=== PATIENT | male | born 1985 | race Caucasian/White ===

== ENCOUNTER 2022-10-27 08:47 | Outpatient (AMB) | payer OTHER, SELFPAY ==
[2022-10-27 08:49] VITALS: BP 116/76; PULSE 78; O2SAT 98; BMI 41.5
--- NOTE | 2022-10-27 08:49 | A.OFFPC_ITS ---
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: No Accompanied by: Self / Same As Patient Allergies No Known Allergies Allergy (Verified 10/27/22 09:14) Medication List - Last Reconciled 10/27/22 by Jesse Manzano MD No Known Home Meds Tobacco use date assessed: 10/27/22 Dental Screening Dental Screen Date: 10/27/22 Did you have a dental visit in the last 12 months?: No Did you have a dental problem in the last 6 months where you did not have access to dental care?: No Was dental information given to patient?: No 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 Details Patient comes in today for his annual physical examination and to establish care - is a new patient to the practice He was actually seen once her back in 2019 by Anselmo Swanson but he did not follow up since as he reportedly lost his health insurance coverage afterwards States that he's had BRI for years and was using a CPAP device regularly until his device broke down a few weeks ago and he will need to get a replacement device ELENA Recalls that his sleep study was done in [place] several years ago and that he tried to get a copy of his results sent over when he was first seen here a few years ago but we have not received any copy of this so far Also recalls that his previous PCP in [place] has cautioned him in the past that his blood pressure and cholesterol levels were a little higher than normal but he's never had to take any Rx for BP or cholesterol previously States that he feels okay overall and currently has no acute issues other than needing a new CPAP device He denies any headaches or dizziness Denies any chest pains, no SOB No nausea/vomiting, no abdominal pain but relates (+) on and off heartburns lately - states that these are promptly relieved with OTC Tums that he takes PRN No change in bowel habits noted Denies any acute urinary symptoms PFSH Medical History (Updated 10/27/22 @ 09:43 by Jesse Manzano MD) Morbid obesity with BMI of 40.0-44.9, adult Obstructive sleep apnea Surgical History (Updated 10/27/22 @ 09:18 by Jesse Manzano MD) History of tonsillectomy and adenoidectomy Family History Other Heart problem Social History Housing: Apartment Patient Tobacco Use Status: Former Tobacco user e-Cigarette/Vaping Use: Never Used service: No Current occupational status: employed Cognitive needs: No Hearing needs: No Vision needs: No Questionnaire PHQ-9 Over the last 2 weeks, how often have you been bothered by any of the following problems? 1. Little interest or pleasure in doing things: not at all 2. Feeling down, depressed, or hopeless: not at all 3. Trouble falling or staying asleep, or sleeping too much: not at all 4. Feeling tired or having little energy: not at all 5. Poor appetite or overeating: not at all 6. Feeling bad about yourself - or that you are a failure or have let yourself or your family down: not at all 7. Trouble concentrating on things, such as reading the newspaper or watching television: not at all 8. Moving or speaking so slowly that other people could have noticed. Or the opposite - being so fidgety or restless that you have been moving around a lot more than usual: not at all 9. Thoughts that you would be better off or of hurting yourself in some way: not at all Total score: 0 Depression Screening Interpretation: Negative [id number] - PHQ-9 Billing: Yes Source: Developed by Drs. Shimon Cary, Yanelis Olivera, Abdias Loaiza and colleagues, with an educational shar from [employer] Thrive Questionnaire Date Thrive assessed: 10/27/22 I am a: Patient What is your living situation today?: I have a steady place to live Within the past 12 months, did the food you bought not last and you didn't have the money to get more?: Never true Within the past 12 months, did you worry whether your food would run out before you got money to buy more?: Never true Do you have trouble paying for medicines?: No Do you have trouble getting transportation to medical appointments?: No Do you have trouble paying your heating and electricity bill?: No Do you have trouble taking care of your child, family member or friend?: No Do you have trouble with day-to-day activities such as bathing, preparing meals, shopping, managing finances, etc.?: No Are you currently unemployed and looking for a job?: No Are you interested in more education?: No Please select the resources that you would like help with: None Currently or been in a relationship where the following occur: no concerns reported AUDIT C Alcohol Use Questionnaire (AUDIT-C) 1. How often do you have a drink containing alcohol?: Never 3. How often do you have six or more drinks on one occasion?: Never Total Score: 0 Score Reviewed/Action Taken: Yes DES-7 AMB Questionnaire DES-7 Date DES - 7 assessed: 10/27/22 Feeling nervous, anxious, or on edge: 0 = Not at all Not being able to stop or control worryin = Not at all Worrying too much about different things: 0 = Not at all Trouble relaxin = Not at all Being so restless that it is hard to sit still: 0 = Not at all Becoming easily annoyed or irritable: 0 = Not at all Source: Developed by Drs. Shimon Cary, Yanelis Olivera, Abdias Loaiza and colleagues, with an educational shar from [employer] Review of Systems Const Denies chills, Denies fatigue, Denies fever(s), Denies headache(s), Denies malaise and Denies weakness Eyes Denies blurry vision, Denies change in vision, Denies irritation and Denies itchy eyes ENT Denies dysphagia, Denies dizziness, Denies otalgia, Denies headache(s), Denies nasal congestion, Denies neck pain, Denies odynophagia and Denies sore throat Card Denies chest pain, Denies rapid heart rate, Denies irregular heart rhythm, Den ies palpitations and Denies dyspnea Resp Denies chest congestion, Denies cough, Denies dyspnea and Denies wheezing GI Denies abdominal pain, Denies bloating, Denies constipation, Denies dysphagia, Reports heartburn (on and off lately), Denies diarrhea, Denies nausea, Denies odynophagia and Denies vomiting Denies hematuria, Denies difficulty urinating, Denies dysuria, Denies urinary frequency and Denies urinary urgency Musc Denies back pain, Denies arthralgias, Denies joint swelling, Denies muscle weakness and Denies neck pain Skin/Breast Denies change in pigmentation, Denies lesions, Denies rash and Denies unusual bruising Neuro Denies dizziness, Denies headache(s), Denies paresthesias and Denies weakness Endo Denies fatigue and Denies palpitations Aller/Immun Denies itchy eyes and Denies wheezing Physical exam (Primary Care) Vital Signs: Last Vital Signs Pulse 78 10/27/22 08:49 BP 116/76 10/27/22 08:49 Pulse Ox 98 10/27/22 08:49 Oxygen Delivery Method Room Air 10/27/22 08:49 BMI result Body Mass Index 41.5 Tobacco/Smoking Status: Tobacco use Status Tobacco use date assessed 10/27/22 10/27/22 08:56 Patient Tobacco Use Status Former Tobacco user 10/27/22 08:56 e-Cigarette/Vaping Use Never Used 10/27/22 08:56 PHQ-9: PHQ-9 Score PHQ-9: Total score 0 10/27/22 08:56 Depression Screening Interpretation: Negative Thrive Assessment: Date of Thrive Assessment Date Thrive assessed 10/27/22 10/27/22 08:56 Currently or been in a relationship where the following occur: no concerns reported Const General: no acute distress, alert and awake Orientation/consciousness: patient oriented x3 HENMT Head: Yes normocephalic and Yes atraumatic Ears: external ears normal, TM's normal bilaterally and EAC's normal General nose exam: No nasal discharge present Face and sinus: Yes normal facial exam and Yes sinuses nontender Teeth and gingiva: dentition normal Throat: Yes posterior oropharynx normal and Yes tonsils normal (no TP congestion) Eyes Eyelids: Yes eyelids normal Conjunctivae: conjunctivae normal Pupils: Equal, round and reactive pupils present EOM: EOMs intact bilaterally Neck Neck: Yes no lymphadenopathy and Yes supple Thyroid: Thyroid normal Resp Auscultation: clear to auscultation bilaterally, no rales and no wheezes Cardio Rate: regular rate Rhythm: regular rhythm Heart sounds: no murmurs GI Palpation (GI): Soft to palpation, nontender and No hepatosplenomegaly present Auscultation: normal bowel sounds General: Yes no CVA tenderness Penis: circumcised Scrotum: testes descended bilaterally Testes: no testicular mass Back/Spine/Pelvis Back: no CVA tenderness Thoracic/Lumbar Spine: thoracic and lumbar spine normal to inspection Skin Lesions: no lesions Rashes: no rashes Neuro General: patient oriented x3, moves all extremities, no focal motor deficits and CN's II-XI intact bilaterally Cranial nerves: Yes Equal, round and reactive pupils present Cognition (Neuro): normal cognition Gait exam (Neuro): Normal gait present Extrem General: Yes no clubbing, cyanosis or edema Assessment and Plan Assessment & Plan (1) Annual physical exam: Code(s): Z00.00 - Encounter for general adult medical examination without abnormal findings Plan: Check labs (2) Obstructive sleep apnea: Code(s): G47.33 - Obstructive sleep apnea (adult) (pediatric) Plan: (+) Hx of BRI, with his last sleep study done in [place] several years ago - copy of his results are not available at this time Was using a CPAP device regularly for years, with significant improvement reportedly of his sleep apnea symptoms but states that his old device broke down a few weeks ago and he is now in need of a replacement device Will refer him to Sleep Medicine for further management; he will most likely require an updated sleep study done due to insurance requirements as it has been several years now since he's had his sleep study done (3) Hyperlipidemia: Code(s): E78.5 - Hyperlipidemia, unspecified Qualifiers: Hyperlipidemia type: unspecified Qualified Code(s): E78.5 - Hyperlipidemia, unspecified Plan: Patient recalls being advised by his previous PCP years ago that his cholesterol level was higher than normal but he has not had it rechecked in a few years now Discussed and recommend that he go on a low cholesterol diet if he is not doing so yet Will recheck his fasting lipids and other labs [facility] for follow up (4) Morbid obesity with BMI of 40.0-44.9, adult: Code(s): E66.01 - Morbid (severe) obesity due to excess calories; Z68.41 - Body mass index [BMI] 40.0-44.9, adult Plan: Discussed diet/exercise as tolerated/lose weight Plan Follow up in 3 months Orders: Orders Comprehensive [place]. Panel Fast Today E66.01 - Morbid (severe) obesity due to excess calories, G47.33 - Obstructive sleep apnea (adult) (pediatric), Z00.00 - Encounter for general adult medical examination without abnormal findings, Z68.41 - Body mass index [BMI] 40.0-44.9, adult Lipid Panel Today E66.01 - Morbid (severe) obesity due to excess calories, E78.00 - Pure hypercholesterolemia, unspecified, Z00.00 - Encounter for general adult medical examination without abnormal findings, Z68.41 - Body mass index [BMI] 40.0-44.9, adult TSH reflex Free T4 Today E66.01 - Morbid (severe) obesity due to excess calories, E78.00 - Pure hypercholesterolemia, unspecified, G47.33 - Obstructive sleep apnea (adult) (pediatric), Z00.00 - Encounter for general adult medical examination without abnormal findings, Z68.41 - Body mass index [BMI] 40.0-44.9, adult Vitamin D 25-OH Total Today E55.9 - Vitamin D deficiency, unspecified, Z00.00 - Encounter for general adult medical examination without abnormal findings Complete Blood Count Auto Diff Today G47.33 - Obstructive sleep apnea (adult) (pediatric), Z00.00 - Encounter for general adult medical examination without abnormal findings UA CC w/rflx Micro + Cult Today R30.0 - Dysuria, Z00.00 - Encounter for general adult medical examination without abnormal findings Referrals Sleep Medicine Referral G47.33 - Obstructive sleep apnea (adult) (pediatric) Coding Level of Care Code New Pt Prev Care 18-39yr([id number] Diagnoses Annual physical exam Z00.00 Obstructive sleep apnea G47.33 Hyperlipidemia E78.5 Hyperlipidemia type: unspecified Morbid obesity with BMI of 40.0-44.9, adult E66.01; Z68.41
== END 2022-10-27 09:29 | disposition home or self-care (01) ==
PROVIDERS: PCP Internal Medicine; Visit Provider Internal Medicine
DX: Z00.00 Encounter for general adult medical examination without abnormal findings (principal); G47.33 Obstructive sleep apnea (adult) (pediatric); E66.01 Morbid (severe) obesity due to excess calories; Z68.41 Body mass index [BMI] 40.0-44.9, adult; E78.5 Hyperlipidemia, unspecified
CPT/HCPCS: 99385

== ENCOUNTER 2023-01-12 08:09 | Outpatient (AMB) | payer OTHER, SELFPAY ==
--- NOTE | 2023-01-12 08:10 | A.OFFVIS_ITS ---
Intake Vital Signs 01/12/23 08:12 Height 6 ft 1 in Weight 319 lb BMI 42.1 BP 138/76 Blood Pressure Location Rt brachial Position Sitting Pulse 91 Pulse Oximetry (%) 97 Oxygen Delivery Method Room Air Intake Visit Reasons: INP-BRI - Confirmed Intake Note: NPV for BRI Brought cpap but has no supplier [employer] Required: No Allergies No Known Allergies Allergy (Verified 01/12/23 08:11) HPI HPI Comments History of Present Illness Details 37 y/o male patient presents for new in- person visit to manage sleep apnea. Pt reports that he was diagnosed with BRI in 2017 and has been using CPAP. Pt states that his CPAP makes really loud noise. He was told that he had severe degree of sleep apnea, the AHI was 110/hr. He is on CPAP at [id number]. The CPAP compliance available up to He sleeps well with CPAP. However, he still snores with CPAP, and has daytime sleepiness. He lost 60-70 lb since the last sleep study. Sleep questionnaire: Have you ever been diagnosed with a sleep disorder? Yes, severe Have you ever had a sleep study in the past? Yes. Have you ever been treated for a sleep disorder? Yes, CPAP. Do you take medications for a sleep disorder? No. Do you snore? Yes. Do you wake up gasping at night? No. Do you have episodes of apneas? Yes. If yes, are they witnessed? Yes. Do you have episodes of nocturnal chest pain or dyspnea? No. Do you have difficulty initiating sleep? No. Do you have difficulty maintaining sleep? No. Do you wake up tired? Yes, all the time. Do you have headaches upon awakening? No. Do you wake up with dry mouth or throat? No. Do you have GERD? No. Do you have nocturia? No. Do you have nocturnal leg cramps? No. Do you have symptoms of restless legs? No. Do you act out your dreams? Yes, sometimes. Sleep hygiene questionnaire: What is your usual sleep routine? Usual bedtime is at 10 pm-12 am; Usual wake up time is at 6:15 am. Do you take naps? Want to take a nap, but try not to. Is your sleep environment cool, dark, and quiet? Yes. Do you exercise? Yes. Do you take caffeine or other stimulants? Coffee and energy drink daily. Do you use electronics in bed? No. What is your work schedule? 7 am to 3 pm. Hypersomnolence questionnaire: Do you have daytime tiredness or fatigue? Yes. Do you easily fall asleep when inactive? Yes. Have you ever had episodes of sudden weakness? No. Have you ever had episodes of sudden weakness associated with strong emotions? No. [facility] Medical History (Updated 01/12/23 @ 08:41 by Sebastian Noel CNP) Morbid obesity with BMI of 40.0-44.9, adult Obstructive sleep apnea Surgical History (Updated 10/27/22 @ 09:18 by Jesse Manzano MD) History of tonsillectomy and adenoidectomy Family History Other Heart problem Social History (Updated 01/12/23 @ 08:12 by Yenni Carvajal CMA) Housing: Apartment Alcohol intake: current Alcohol intake frequency: holidays/special occasions only Patient Tobacco Use Status: Former Tobacco user e-Cigarette/Vaping Use: Never Used service: No Current occupational status: employed Cognitive needs: No Hearing needs: No Vision needs: No Questionnaire [place] Sleepiness Scale Questions Sitting and reading: moderate chance of dozing Watching TV: high chance of dozing Sitting inactive in a theater, movie etc.: moderate chance of dozing As a passenger in a car for an hour without break: would never doze Lying down in the afternoon when circumstances permit: high chance of dozing Sitting and talking to someone: slight chance of dozing Sitting quietly after lunch without alcohol: high chance of dozing In a car, while stopped for a few minutes in the traffic: slight chance of dozing ESS < 10: normal, ESS > 12: pathologic: 15 Review of Systems ENT Reports Normal hearing present Neuro Reports Normal hearing present Physical Exam Vital Signs: Last Vital Signs Pulse 91 01/12/23 08:12 BP 138/76 01/12/23 08:12 Pulse Ox 97 01/12/23 08:12 Oxygen Delivery Method Room Air 01/12/23 08:12 BMI result Body Mass Index 42.1 Const General: cooperative and tired appearing Nutritional Appearance: obese Orientation/consciousness: patient oriented x3 Neck Neck: Yes full ROM and Yes supple Resp Effort & Inspection: normal respiratory effort and able to speak in complete sentences Neuro General: patient oriented x3, gait normal and moves all extremities Cranial nerves: Yes Bilaterally intact EOM present, Yes Normal facial strength present, Yes Midline tongue present, Yes Symmetric palate elevation present, Yes Normal hearing present, Yes Ability to bilaterally rotate head present and Yes Ability to bilaterally elevate shoulders present Cognition (Neuro): normal cognition Gait exam (Neuro): Normal gait present Motor exam (neuro): 5/5 motor strength present throughout, Pronator motor function not present and no tremor noted Psych Appearance: grossly normal Mental Status: mental status grossly normal Speech and movement: Normal speech and movement present Affect: normal affect Attitude: cooperative Assessment & Plan Assessment & Plan (1) Excessive daytime sleepiness: Code(s): G47.19 - Other hypersomnia (2) Morbid obesity with BMI of 40.0-44.9, adult: Code(s): E66.01 - Morbid (severe) obesity due to excess calories; Z68.41 - Body mass index [BMI] 40.0-44.9, adult (3) Obstructive sleep apnea: Comment: Hx of severe degree apnea, the AHI was 101/hr. Code(s): G47.33 - Obstructive sleep apnea (adult) (pediatric) Plan Pt is advised to undergo in lab sleep study to assess for sleep apnea. Will f/u with pt after study to discuss results and appropriate treatment options. Pt to call with any worsening concerns or questions. Orders: Orders RT PSG in-lab sleep study Today E66.01 - Morbid (severe) obesity due to excess calories, G47.19 - Other hypersomnia, G47.33 - Obstructive sleep apnea (adult) (pediatric), Z68.41 - Body mass index [BMI] 40.0-44.9, adult Coding Level of Care Code New Pt Level 3 (15162) Diagnoses Excessive daytime sleepiness G47.19 Morbid obesity with BMI of 40.0-44.9, adult E66.01; Z68.41 Obstructive sleep apnea G47.33
[2023-01-12 08:12] VITALS: BP 138/76; PULSE 91; O2SAT 97; BMI 42.1
== END 2023-01-12 08:43 | disposition home or self-care (01) ==
PROVIDERS: PCP Internal Medicine; Visit Provider Nurse Practitioner Family
DX: G47.19 Other hypersomnia (principal); E66.01 Morbid (severe) obesity due to excess calories; Z68.41 Body mass index [BMI] 40.0-44.9, adult; G47.33 Obstructive sleep apnea (adult) (pediatric)
CPT/HCPCS: 99203

== ENCOUNTER → 2023-01-12 08:09 | Outpatient (BNVA) | payer OTHER, SELFPAY | PROVIDERS: PCP Internal Medicine; Visit Provider Nurse Practitioner Family | DX: G47.33 Obstructive sleep apnea (adult) (pediatric) (principal); G47.19 Other hypersomnia; E66.01 Morbid (severe) obesity due to excess calories; Z68.41 Body mass index [BMI] 40.0-44.9, adult | CPT/HCPCS: 99202 ==

== ENCOUNTER → 2023-02-12 22:27 | Outpatient (BNV) | payer OTHER, SELFPAY | PROVIDERS: PCP Internal Medicine; Visit Provider Psychiatry & Neurology Neurology | DX: G47.33 Obstructive sleep apnea (adult) (pediatric) (principal) | CPT/HCPCS: 95810 ==

== ENCOUNTER → 2023-02-12 22:33 | Outpatient (REF) | payer OTHER, SELFPAY | LOC: HO.SL 22:33 | PROVIDERS: PCP Internal Medicine; Visit Provider Nurse Practitioner Family | DX: G47.33 Obstructive sleep apnea (adult) (pediatric) (principal); G47.19 Other hypersomnia; E66.01 Morbid (severe) obesity due to excess calories; Z68.41 Body mass index [BMI] 40.0-44.9, adult | CPT/HCPCS: 95810 ==

== ENCOUNTER → 2023-05-12 15:26 | Outpatient (BNVA) | payer OTHER, SELFPAY | PROVIDERS: PCP Internal Medicine; Visit Provider Nurse Practitioner Family | DX: G47.33 Obstructive sleep apnea (adult) (pediatric) (principal) | CPT/HCPCS: 99212 ==

== ENCOUNTER 2023-05-12 15:36 | Outpatient (AMB) | payer OTHER, SELFPAY ==
--- NOTE | 2023-05-12 15:43 | MHC.OFFVIS ---
Intake Vital Signs 05/12/23 15:52 Height 6 ft 1 in Weight 318 lb 2 oz BMI 42.0 BP 140/80 H Blood Pressure Location Rt brachial Position Sitting Pulse 92 Pulse Source Pulse Oximeter Pulse Oximetry (%) 96 Oxygen Delivery Method Room Air Intake Visit Reasons: 4m FOLLOW UP-LVM Intake Note: Patient presents for 4 month f/u. Allergies No Known Allergies Allergy (Verified 05/12/23 15:46) HPI HPI Comments History of Present Illness Details 37 y/o male patient presents for follow up of sleep study. Pt underwent split sleep study. The baseline portion of the study was significant for moderate snoring and severe degree of sleep apnea. The AHI was 33/hr and oxygen andir was 88%. Pt underwent titration study and recommended CPAP at 8cmH2O. However, pt continued to snores loudly and can't sleep well with pressure 8cmH2O. He used to use CPAP at 15 cmH2O prior to this sleep study. Changed the CPAP pressure 15 cmH2O but the pressure made loud noise. Pt requested to change pressure to [id number]. Pt reports CPAP 12 cmH2O is good for him. He sleeps well, rested and less snoring. He used to drink Energy drink 3-4 daily, but not able to cut down to 2 a day. The CPAP compliance and therapy response (04/12/23-05/11/23) reviewed. He is on CPAP at [id number]. The usage days 100% and the average usage hours 7 hrs 20 min. The residual AHI was 0.7/hr. [facility] Medical History (Updated 05/12/23 @ 16:51 by Sebastian Noel CNP) Morbid obesity with BMI of 40.0-44.9, adult Obstructive sleep apnea Surgical History History of tonsillectomy and adenoidectomy Family History Paternal Grandmother Heart problem Social History Housing: Apartment Alcohol intake: current Alcohol intake frequency: holidays/special occasions only Patient Tobacco Use Status: Former Tobacco user e-Cigarette/Vaping Use: Never Used service: No Current occupational status: employed Cognitive needs: No Hearing needs: No Vision needs: No Review of Systems Const All systems reviewed & are unremarkable except as noted in HPI and below ENT Reports Normal hearing present Neuro Reports Normal hearing present Physical Exam Vital Signs: Last Vital Signs Pulse 92 05/12/23 15:52 BP 140/80 H 05/12/23 15:52 Pulse Ox 96 05/12/23 15:52 Oxygen Delivery Method Room Air 05/12/23 15:52 BMI result Body Mass Index 42.0 Const General: cooperative Nutritional Appearance: obese Orientation/consciousness: patient oriented x3 Neck Neck: Yes full ROM and Yes supple Resp Effort & Inspection: normal respiratory effort and able to speak in complete sentences Neuro General: patient oriented x3, gait normal and moves all extremities Cranial nerves: Yes Bilaterally intact EOM present, Yes Normal facial strength present, Yes Midline tongue present, Yes Symmetric palate elevation present, Yes Normal hearing present, Yes Ability to bilaterally rotate head present and Yes Ability to bilaterally elevate shoulders present Cognition (Neuro): normal cognition Gait exam (Neuro): Normal gait present Motor exam (neuro): 5/5 motor strength present throughout, Pronator motor function not present and no tremor noted Psych Appearance: grossly normal Mental Status: mental status grossly normal Speech and movement: Normal speech and movement present Affect: normal affect Attitude: cooperative Assessment & Plan Assessment & Plan (1) Obstructive sleep apnea: Comment: Severe degree of sleep apnea. The AHI was 33/hr and oxygen lorna was 88%. Code(s): G47.33 - Obstructive sleep apnea (adult) (pediatric) Plan Continue to use CPAP at [id number] as patient experiences good clinical effects, less snoring and breathing improved. Stressed compliance, use CPAP nighlty and more than 4 hrs. Wt reduction advised. Coding Level of Care Code Est Pt Level 3 (95378) Diagnoses Obstructive sleep apnea G47.33
[2023-05-12 15:52] VITALS: BP 140/80; PULSE 92; O2SAT 96; BMI 42.0
== END 2023-05-12 16:01 | disposition home or self-care (01) ==
PROVIDERS: PCP Internal Medicine; Visit Provider Nurse Practitioner Family
DX: G47.33 Obstructive sleep apnea (adult) (pediatric) (principal)
CPT/HCPCS: 99213

== ENCOUNTER 2023-12-06 09:58 | Outpatient (AMB) | payer OTHER, SELFPAY ==
[2023-12-06 10:02] VITALS: BP 128/80; PULSE 100; O2SAT 96; BMI 42.5
--- NOTE | 2023-12-06 10:02 | MHC.PC.OV ---
Vital Signs 12/06/23 10:02 Height 6 ft 1 in Weight 322 lb 4 oz BMI 42.5 BP 128/80 Blood Pressure Location Lt brachial Position Sitting Pulse 100 Pulse Source Pulse Oximeter Pulse Oximetry (%) 96 Oxygen Delivery Method Room Air Intake Visit Reasons: right, wrist, shoulder arm tingling, numb Case Checker Required: No Accompanied by: Self / Same As Patient Allergies No Known Allergies Allergy (Verified 12/06/23 10:13) Medication List - Last Reconciled 12/06/23 by Jesse Manzano MD No Known Home Meds Tobacco use date assessed: 12/06/23 Dental Screening Dental Screen Date: 12/06/23 Did you have a dental visit in the last 12 months?: No Did you have a dental problem in the last 6 months where you did not have access to dental care?: No Was dental information given to patient?: No HPI right, wrist, shoulder arm tingling, numb HPI Details Patient comes in today complaining of increasing pain in his right shoulder, right elbow and right wrist for the past 1 month now and feels that the pain in the joints have been getting worse lately Notes that his right arm also tingles and feels like it is burning at times 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[employer]) and 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 right-handed and feels that his current symptoms are related to his line of work He denies any other injury or trauma to his right upper extremity and no other acute complaints or issues are noted [facility] Medical History Morbid obesity with BMI of 40.0-44.9, adult Obstructive sleep apnea Surgical History History of tonsillectomy and adenoidectomy Family History Paternal Grandmother Heart problem Social History Housing: Apartment Alcohol intake: current Alcohol intake frequency: holidays/special occasions only Patient Tobacco Use Status: Former Tobacco user e-Cigarette/Vaping Use: Never Used service: No Current occupational status: employed Cognitive needs: No Hearing needs: No Vision needs: No Questionnaire PHQ-9 Over the last 2 weeks, how often have you been bothered by any of the following problems? 1. Little interest or pleasure in doing things: not at all 2. Feeling down, depressed, or hopeless: not at all 3. Trouble falling or staying asleep, or sleeping too much: not at all 4. Feeling tired or having little energy: not at all 5. Poor appetite or overeating: not at all 6. Feeling bad about yourself - or that you are a failure or have let yourself or your family down: not at all 7. Trouble concentrating on things, such as reading the newspaper or watching television: not at all 8. Moving or speaking so slowly that other people could have noticed. Or the opposite - being so fidgety or restless that you have been moving around a lot more than usual: not at all 9. Thoughts that you would be better off or of hurting yourself in some way: not at all Total score: 0 Depression Screening Interpretation: Negative Depression Screening Done: Yes 42218 - PHQ-9 Billing: Yes Source: Developed by Drs. Shimon Cary, Yanelis Olivera, Abdias Loaiza and colleagues, with an educational shar from [employer]. Thrive Questionnaire Date Thrive assessed: 12/06/23 I am a: Patient What is your living situation today?: I have a steady place to live Within the past 12 months, did the food you bought not last and you didn't have the money to get more?: Never true Within the past 12 months, did you worry whether your food would run out before you got money to buy more?: Never true Do you have trouble paying for medicines?: No Do you have trouble getting transportation to medical appointments?: No Do you have trouble paying your heating and electricity bill?: No Do you have trouble taking care of your child, family member or friend?: No Do you have trouble with day-to-day activities such as bathing, preparing meals, shopping, managing finances, etc.?: No Are you currently unemployed and looking for a job?: No Are you interested in more education?: No Please select the resources that you would like help with: None Currently or been in a relationship where the following occur: No concerns reported THRIVE Score: 0 AUDIT C Alcohol Use Questionnaire (AUDIT-C) 1. How often do you have a drink containing alcohol?: Never 2. How many drinks containing alcohol do you have on a typical day when you are drinking?: 1 or 2 3. How often do you have six or more drinks on one occasion?: Never Total Score: 0 Score Reviewed/Action Taken: Yes DES-7 AMB Questionnaire DES-7 Date DES - 7 assessed: 12/06/23 Feeling nervous, anxious, or on edge: 0 = Not at all Not being able to stop or control worryin = Not at all Worrying too much about different things: 0 = Not at all Trouble relaxin = Not at all Being so restless that it is hard to sit still: 0 = Not at all Becoming easily annoyed or irritable: 0 = Not at all Feeling afraid as if something awful might happen: 0 = Not at all Total DES-7 score (0-4 normal; 5-9 mild; 10-14 moderate; 15-21 severe): 0 Source: Developed by Drs. Shimon Cayr, Yanelis Olivera, Abdias Loaiza and colleagues, with an educational shar from [employer]. Review of Systems Const Denies chills, Denies fatigue, Denies fever(s) and Denies headache(s) ENT Denies dysphagia, Denies dizziness, Denies headache(s), Denies neck pain, Denies odynophagia and Denies sore throat Card Denies chest pain, Denies palpitations and Denies dyspnea Resp Denies chest congestion, Denies cough, Denies dyspnea and Denies wheezing GI Denies abdominal pain, Denies constipation, Denies dysphagia, Denies diarrhea, Denies nausea, Denies odynophagia and Denies vomiting Denies dysuria and Denies urinary frequency Musc Denies back pain, Reports arthralgias (increased pain over the right shoulder, R elbow and R wrist lately) and Denies neck pain Skin/Breast Denies rash Neuro Denies dizziness, Denies headache(s) and Denies paresthesias Endo Denies fatigue and Denies palpitations Aller/Immun Denies wheezing Physical exam (Primary Care) Vital Signs: Last Vital Signs Pulse 100 12/06/23 10:02 BP 128/80 12/06/23 10:02 Pulse Ox 96 12/06/23 10:02 Oxygen Delivery Method Room Air 12/06/23 10:02 BMI result Body Mass Index 42.5 Tobacco/Smoking Status: Tobacco use Status Tobacco use date assessed 12/06/23 12/06/23 10:06 Patient Tobacco Use Status Former Tobacco user 12/06/23 10:06 e-Cigarette/Vaping Use Never Used 12/06/23 10:06 PHQ-9: PHQ-9 Score PHQ-9: Total score 0 12/06/23 10:14 Depression Screening Interpretation: Negative Thrive Assessment: Date of Thrive Assessment Date Thrive assessed 12/06/23 12/06/23 10:06 Currently or been in a relationship where the following occur: No concerns reported Const General: no acute distress and alert HENMT Throat: Yes posterior oropharynx normal and Yes tonsils normal (no TP congestion) Neck Neck: Yes no lymphadenopathy and Yes supple Thyroid: Thyroid normal Resp Auscultation: clear to auscultation bilaterally, no rales and no wheezes Cardio Rate: regular rate Rhythm: regular rhythm Heart sounds: no murmurs GI Palpation (GI): Soft to palpation and nontender Auscultation: normal bowel sounds General: Yes no CVA tenderness Back/Spine/Pelvis Back: no CVA tenderness Skin Rashes: no rashes Extrem General: Yes no clubbing, cyanosis or edema Right upper extremity: shoulder/upper arm Details: tenderness Location: of the A-C joint, elbow/forearm Details: tenderness Location: of the olecranon and of the lateral epicondyle and wrist Details: tenderness Location: of the volar wrist Assessment and Plan Assessment & Plan (1) Right rotator cuff tendinitis: Code(s): M75.81 - Other shoulder lesions, right shoulder Plan: Have advised patient that his right shoulder pain is likely due to rotator cuff tendinitis, mostly brought about by the nature of his work Will send him for x-rays of the right shoulder for further evaluation Will start him for now on Ibuprofen 800 mg TID PRN He is also advised to 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 for at least a couple of weeks - he can pursue light duty instead, if there are accomodations for this at his current place of employment (2) Right elbow tendinitis: Code(s): M77.8 - Other enthesopathies, not elsewhere classified Plan: Will send him for right elbow x-rays for further evaluation but his symptoms are also likely due to tendinitis/bursitis Will start him on ibuprofen 800 mg TID PRN Advised that he can also try applying some warm compress over his elbow PRN for symptomatic relief (3) Right wrist pain: Code(s): M25.531 - Pain in right wrist Plan: His wrist pain is also likely brought about by the repetitive motion of his arm and hand at work Will send him for x-rays of the right wrist for further evaluation Plan To return as scheduled in January 2024 for his annual physical examination Orders: Orders Complete Blood Count Auto Diff 01/12/24 D64.9 - Anemia, unspecified, Z00.00 - Encounter for general adult medical examination without abnormal findings Comprehensive [place]. Panel Fast 01/12/24 E78.00 - Pure hypercholesterolemia, unspecified, Z00.00 - Encounter for general adult medical examination without abnormal findings UA CC w/rflx Micro + Cult 01/12/24 R30.0 - Dysuria, Z00.00 - Encounter for general adult medical examination without abnormal findings Lipid Panel 01/12/24 E78.00 - Pure hypercholesterolemia, unspecified, Z00.00 - Encounter for general adult medical examination without abnormal findings TSH reflex Free T4 01/12/24 E78.00 - Pure hypercholesterolemia, unspecified, Z00.00 - Encounter for general adult medical examination without abnormal findings Vitamin D 25-OH Total 01/12/24 E55.9 - Vitamin D deficiency, unspecified, Z00.00 - Encounter for general adult medical examination without abnormal findings Hemoglobin A1c 01/12/24 R73.9 - Hyperglycemia, unspecified, Z00.00 - Encounter for general adult medical examination without abnormal findings XR shoulder RT min 2V 12/06/23 M25.511 - Pain in right shoulder XR elbow RT min 3V 12/06/23 M25.521 - Pain in right elbow XR wrist RT min 3V 12/06/23 M25.531 - Pain in right wrist Medications: New ibuprofen Take with food as needed 800 mg PO TID PRN 90 tabs 1RF pain Coding Level of Care Code Est Pt Level 3 (30808) Diagnoses Right rotator cuff tendinitis M75.81 Right elbow tendinitis M77.8 Right wrist pain M25.539
== END 2023-12-06 10:32 | disposition home or self-care (01) ==
PROVIDERS: PCP Internal Medicine; Visit Provider Internal Medicine
DX: M75.81 Other shoulder lesions, right shoulder (principal); M77.8 Other enthesopathies, not elsewhere classified; M25.531 Pain in right wrist

== ENCOUNTER → 2023-12-06 09:58 | Outpatient (BNVA) | payer OTHER, SELFPAY | PROVIDERS: PCP Internal Medicine; Visit Provider Internal Medicine | DX: M75.81 Other shoulder lesions, right shoulder (principal); M77.8 Other enthesopathies, not elsewhere classified; M25.531 Pain in right wrist | CPT/HCPCS: 99212 ==